=== PATIENT | male | born 1985 | race African-American/Black ===

== ENCOUNTER 2017-10-11 00:33 | Emergency (ER) | payer SELFPAY ==
[~2017-10-11] VITALS: Ht 175.3 cm; Wt 115.0 kg
[~2017-10-11 00:33] MED LIST: BACL10TA PO; DICL75 PO; NAPR550 PO; TYLE3 PO
[2017-10-11 00:34] VITALS: BP 155/96; PULSE 87; RESP 16; TEMP 98.1; O2SAT 98
[2017-10-11 01:33] VITALS: BP 143/86; PULSE 83; RESP 14; O2SAT 99
--- NOTE | 2017-10-11 02:30 | RADRPT ---
EXAM DATE/TIME: 10/11/2017 01:56 [place] COMPARISON: No previous studies available for comparison. INDICATIONS : Chest pain. MEDICAL HISTORY : None. SURGICAL HISTORY : None. ENCOUNTER: Initial ACUITY: 1 day PAIN SCORE: 7/10 LOCATION: Bilateral chest FINDINGS: A single view of the chest demonstrates the lungs to be symmetrically aerated without evidence of mas s, infiltrate or effusion. The cardiomediastinal contours are unremarkable. Osseous structures are intact. CONCLUSION: 1. No acute cardiopulmonary disease. Catracho Perez MD on October 11, 2017 at 2:27 Board Certified Radiologist. This report was verified electronically.
[2017-10-11 02:52] LABS: AUTOMATED NEUTROPHIL # 3.5 TH/MM3 (1.8-7.7); BASOPHIL # 0.1 TH/MM3 (0-0.2); BASOPHIL % 0.7 % (0.0-2.0); EOSINOPHIL # 0.1 TH/MM3 (0-0.4); EOSINOPHIL % 0.7 % (0.0-4.0); HEMATOCRIT 42.2 % (39.0-51.0); HEMOGLOBIN 13.7 GM/DL (13.0-17.0); LYMPH % 43.8 % (9.0-44.0); LYMPHOCYTE # 3.5 TH/MM3 (1.0-4.8); MEAN CELL VOLUME 79.8 FL (80.0-100.0); MEAN CORPUSCULAR HGB CONC 32.6 % (32.0-36.0); MEAN PLATELET VOLUME 8.5 FL (7.0-11.0); MONOCYTE # 0.8 TH/MM3 (0-0.9); NEUT % 44.8 % (16.0-70.0); PLATELET COUNT 253 TH/MM3 (150-450); RED BLOOD COUNT 5.28 MIL/MM3 (4.50-5.90); RED CELL DISTRIBUTION WIDTH 14.1 % (11.6-17.2); WHITE BLOOD COUNT 7.9 TH/MM3 (4.0-11.0)
--- NOTE | 2017-10-11 03:00 | PD ---
HPI Chief Complaint: Chest Pain Time Seen by Provider: 02:52 Travel History International Travel<30 days: No Contact w/Intl Traveler<30days: No Traveled to known affect area: No History of Present Illness HPI 31-year-old male complains of left-sided chest pain. Patient states that he has intermittent left sided chest pain for the past week. Patient states the chest pain is sharp pain localized anterior left chest area. Patient denies any pain radiation. Patient states the pain is worse with movement and deep breathing. Patient denies any coughing congestion fever chills. Patient denies any injury to the chest wall area. Patient denies any history of cardiac disease. Patient denies history hypertension, diabetes, hyperlipidemia. Patient is a smoker. Patient denies family history heart disease. PFSH Past Medical History Autoimmune Disease: No Blood Disorders: No Anxiety: No Depression: No Cardiovascular Problems: No Diminished Hearing: No Gastrointestinal Disorders: No Genitourinary: No Musculoskeletal: No Neurologic: No Psychiatric: No Respiratory: No Sickle Cell Disease: No Past Surgical History Other Surgery: Yes (LT WRIST) Social History Alcohol Use: Yes Tobacco Use: Yes Substance Use: No Allergies-Medications (Allergen,Severity, Reaction): Coded Allergies: No Known Allergies (Verified Adverse Reaction, Unknown, 10/11/17) Reported Meds & Prescriptions Reported Meds & Active Scripts Active No Active Prescriptions or Reported Medications Review of Systems General / Constitutional: No: Fever Eyes: No: Visual changes HENT: No: Headaches Cardiovascular: Positive: Chest Pain or Discomfort Respiratory: No: Shortness of Breath Gastrointestinal: No: Abdominal Pain Genitourinary: No: Dysuria Musculoskeletal: No: Pain Skin: No Rash Neurologic: No: Weakness Psychiatric: No: Depression Endocrine: No: Polydipsia Hematologic/Lymphatic: No: Easy Bruising Physical Exam Narrative GENERAL: Well-nourished, well-developed patient. SKIN: Focused skin assessment warm/dry. HEAD: Normocephalic. EYES: No scleral icterus. No injection or drainage. NECK: Supple, trachea midline. No JVD or lymphadenopathy. CARDIOVASCULAR: Regular rate and rhythm without murmurs, gallops, or rubs. RESPIRATORY: Breath sounds equal bilaterally. No accessory muscle use. GASTROINTESTINAL: Abdomen soft, non-tender, nondistended. MUSCULOSKELETAL: No cyanosis, or edema. BACK: Nontender without obvious deformity. No CVA tenderness. Neurologic exam normal. Data Data Last Documented VS Vital Signs Date Time Temp Pulse Resp B/P (MAP) Pulse Ox O2 Delivery O2 Flow Rate FiO2 10/11/17 01:33 83 14 143/86 (105) 99 Room Air 10/11/17 00:34 98.1 Orders Orders Electrocardiogram (10/11/17 01:42) Complete Blood Count With Diff (10/11/17 01:42) Basic Metabolic Panel (Bmp) (10/11/17 01:42) Ckmb (Isoenzyme) Profile (10/11/17 01:42) Troponin I (10/11/17 01:42) Chest, Single Ap (10/11/17 01:42) Iv Access Insert/Monitor (10/11/17 01:42) Ecg Monitoring (10/11/17 01:42) Oxygen Administration (10/11/17 01:42) Oximetry (10/11/17 01:42) CKMB (10/11/17 02:35) CKMB% (10/11/17 02:35) Labs Laboratory Tests Test 10/11/17 02:35 White Blood Count 7.9 TH/MM3 Red Blood Count 5.28 MIL/MM3 Hemoglobin 13.7 GM/DL Hematocrit 42.2 % Mean Corpuscular Volume 79.8 FL Mean Corpuscular Hemoglobin 26.0 PG Mean Corpuscular Hemoglobin Concent 32.6 % Red Cell Distribution Width 14.1 % Platelet Count 253 TH/MM3 Mean Platelet Volume 8.5 FL Neutrophils (%) (Auto) 44.8 % Lymphocytes (%) (Auto) 43.8 % Monocytes (%) (Auto) 10.0 % Eosinophils (%) (Auto) 0.7 % Basophils (%) (Auto) 0.7 % Neutrophils # (Auto) 3.5 TH/MM3 Lymphocytes # (Auto) 3.5 TH/MM3 Monocytes # (Auto) 0.8 TH/MM3 Eosinophils # (Auto) 0.1 TH/MM3 Basophils # (Auto) 0.1 TH/MM3 CBC Comment DIFF FINAL Differential Comment Blood Urea Nitrogen 19 MG/DL Creatinine 0.85 MG/DL Random Glucose 87 MG/DL Calcium Level 9.0 MG/DL Sodium Level 139 MEQ/L Potassium Level 3.9 MEQ/L Chloride Level 106 MEQ/L Carbon Dioxide Level 26.5 MEQ/L Anion Gap 7 MEQ/L Estimat Glomerular Filtration Rate 128 ML/MIN Total Creatine Kinase 264 U/L Creatine Kinase MB 2.9 NG/ML Troponin I LESS THAN 0.02 NG/ML MDM Medical Decision Making Medical Screen Exam Complete: Yes Emergency Medical Condition: Yes Interpretation(s) EKG shows sinus rhythm nonspecific ST-T wave change. Last Impressions Chest X-Ray 10/11/17 0142 Signed Impressions: Service Date/Time: October 01:56 - CONCLUSION: 1. No acute cardiopulmonary disease. Catracho Perez MD 3:24 AM. CBC within normal limit. BMP within normal limit. Cardiac enzymes are normal. Differential Diagnosis Differential diagnosis including musculoskeletal, angina, MT, PE, pneumothorax. Narrative Course 31-year-old male with left-sided chest pain. Diagnosis Primary Impression: Atypical chest pain Patient Instructions: General Instructions Additional Instructions: Tylenol Advil for pain. Follow-up with personal physician. Return if increasing chest pain shortness of breath. Med/Other Pt SpecificInfo: No Meds Exist/No RX given Scripts No Active Prescriptions or Reported Meds Disposition: 01 DISCHARGE HOME Condition: Stable Nguyễn Carrera MD Oct 11, 2017 03:00
[2017-10-11 03:05] LABS: TROPONIN I LESS THAN 0.02 NG/ML (0.02-0.05)
[2017-10-11 03:07] LABS: BICARBONATE 26.5 MEQ/L (21.0-32.0); BLOOD UREA NITROGEN 19 MG/DL (7-18); CHLORIDE 106 MEQ/L (98-107); CREATININE 0.85 MG/DL (0.60-1.30); GLOMERULAR FILTRATION RATE 128 ML/MIN (>89); GLUCOSE,RANDOM 87 MG/DL (74-106); SODIUM (NA) 139 MEQ/L (136-145)
[2017-10-11 03:23] VITALS: BP 134/84; PULSE 87; RESP 16; O2SAT 97
--- NOTE | 2017-10-11 19:15 | EKG ---
Date Performed: 10/11/2017 Time Performed: 02:02:41 PTAGE: 31 years EKG: Sinus rhythm NORMAL ECG PREVIOUS TRACING 02/10/03 SINCE PRIOR TRACING THE PATIENT DEVELOPED NONSPECIFIC T-WAVE IN VERSION IN LEAD V3. THIS IS A NEW FINDING,BUT COMPLETELY NONSPECIFIC. Clinical correlation is recomm ended DOCTOR: Vera Garcia Interpretating Date/Time 10/11/2017 19:17:15
== END 2017-10-11 04:11 | disposition home or self-care (01) ==
LOC: NEPE 00:33
DX: R07.89 Other chest pain (principal); Z72.0 Tobacco use
CPT/HCPCS: 71045; 80048; 82550; 82552; 84484; 85025; 93005; 99285